=== PATIENT | female | born 1970 | race Caucasian/White ===

== ENCOUNTER → 2021-02-02 12:07 | Outpatient (BNVA) | payer OTHER, SELFPAY | PROVIDERS: Visit Provider Nurse Practitioner Family | DX: Z20.822 Contact with and (suspected) exposure to COVID-19 (principal); R19.7 Diarrhea, unspecified; R11.0 Nausea; J06.9 Acute upper respiratory infection, unspecified; R05 Cough | CPT/HCPCS: 80053; 85025; 87635 ==

== ENCOUNTER 2021-02-05 13:35 | Outpatient (CLI) | payer OTHER, SELFPAY ==
[2021-02-05 13:45] VITALS: BP 122/76; PULSE 86; RESP 20; TEMP 36.8; O2SAT 93; BMI 40.7
[2021-02-05 13:46] VITALS: BP 97/66; PULSE 74; RESP 20; O2SAT 90
--- NOTE | 2021-02-05 14:27 | PC.NURSE ---
Patient received MCA infusion. Vitals WNL Spo2 93. After infusion BP dropped 97/66 and Spo2 90. Put on 2 liters ad O2 staying 92/93. Patient sent to ER for further evaluation.
== END 2021-02-05 13:36 | disposition home or self-care (01) ==
PROVIDERS: Visit Provider Nurse Practitioner Family
DX: U07.1 COVID-19 (principal)
CPT/HCPCS: 96365

== ENCOUNTER 2021-02-05 14:26 | Emergency (ER) | payer OTHER, SELFPAY ==
[2021-02-05 14:29] VITALS: BP 137/75; PULSE 78; RESP 20; O2SAT 83; BMI 40.7
--- NOTE | 2021-02-05 14:35 | ED_ITS ---
HPI - Allergic Reaction General: Chief complaint: Allergic Reaction Stated complaint: DIFF W/INFUSION Time Seen by Provider: 02/05/21 14:35 History of Present Illness: HPI narrative: Ms. Mesa is a 50-year-old lady with no significant past medical history presents the emergency department from infusion clinic for concern over allergic reaction. Her symptom onset of typical COVID-19 symptoms was approximately 10 days ago and subacute. She had moderate intensity fevers, chills, aches, shortness of breath, cough, nausea, diarrhea, and generalized malaise. She tested positive for Covid on 02/02. She reports symptoms continuing without significant events and reported to infusion clinic today. She tolerated the infusion well and has not felt any different vital signs at the end of her infusion were obtained and her blood pressure was approximately 90 systolic and she was now requiring oxygen due to hypoxemia. She denies any changes that she is noticed including worsening shortness of breath, chest pain, cough, throat swelling, rash, or any other typical signs of allergic reaction. She denies similar episodes in the past. As such there is no intensity, provoking, exacerbating, alleviating factors. Review of Systems General: Reports: 10 or more systems reviewed and unremarkable except in HPI and below Physical Exam Narrative: EXAM NARRATIVE: GENERAL/CONSTITUTIONAL - well-appearing. No acute distress. Supplemental oxygen in place Eyes - PERRL, no conjunctival injection ENMT - Atraumatic external nose and ears. Moist mucous membranes. No pharyngeal edema or voice changes. NECK - supple. trachea midline CARDIOVASCULAR - regular rate and rhythm. Peripheral pulses 2+ and equal RESPIRATORY -mildly coarse to auscultation bilaterally. No wheezes. Good lung aeration. No retractions or accessory muscle use. ABDOMEN/GI - Nontender/Nondistended. No tenderness to percussion or evidence of peritonitis MSK - Extremities without obvious deformity or tenderness to palpation SKIN - Warm, Dry. No rashes including no hives. NEURO - alert and appropriately oriented. strength and sensation intact. Moves all extremities equally. PSYCH - Appropriate mood and affect Course ED course: - Patient was seen and evaluated by me at bedside - Patient placed on cardiac monitors, IV access obtained - Initial evaluation notable for no acute distress, nontoxic appearance. - Labs notable for no leukocytosis, normocytic anemia. No significant metabolic abnormality. Procalcitonin negative. - Imaging notable for findings consistent with known Covid - Patient clinical presentation would be atypical of allergic reaction however given the proximity to infusion and somewhat acute worsening cannot be excluded. Allergic reaction treatment ordered. - Additional considerations were discussed with the patient. In the absence of chest pain, tachypnea, or history of venous thromboembolism PE seems less likely however I did offer CTA to the patient which she declined. - Upon serial reexamination after treatment the patient was similar without worsening. She qualifies for 3 L home oxygen which was ordered. - Based on patient history, evaluation, labs, and imaging as interpreted the most likely cause of the patient's condition is unclear, may be an adverse infusion reaction however I suspect that this is just coincidental and due to COVID-19. - The results of ED evaluation were discussed with the patient including prescriptions and/or symptomatic cares (if applicable) including appropriate and responsible use, followup plan, and return precautions. The patient verbalized understanding and felt safe for discharge. - Patient discharged in satisfactory condition. Vital Signs: Vital signs: Vital Signs Temperature 98.2 F 02/05/21 14:42 Pulse Rate 78 02/05/21 14:42 Respiratory Rate 16 02/05/21 14:42 Blood Pressure 116/84 02/05/21 14:42 Pulse Oximetry 87 L 02/05/21 17:07 MDM - Allergic Reaction Medical Records: Attestation: I reviewed the patient's medical records. Lab Data: Attestation: I reviewed the patient's lab results. Labs: Lab Results 02/05/21 02/05/21 02/05/21 Range/Units 14:47 14:47 14:47 WBC 5.2 (4.0-10.0) 10^3/ uL RBC 4.16 (4.1-5.3) 10^6/u L Hgb 9.7 L (11.5-15.3) g/dL Hct 33.7 L (37.0-47.0) % MCV 81.0 (81-99) fl MCH 23.3 L (28.0-34.0) pg MCHC 28.8 L (30.0-36.0) g/dL RDW 16.8 H (12.1-15.1) % Plt Count 294 (130-400) 10^3/c mm MPV 9.7 (7.4-10.4) fL Neut % (Auto) 75.5 % Lymph % (Auto) 15.2 % Wilson % (Auto) 6.4 % Eos % (Auto) 0.0 % Baso % (Auto) 0.0 % Neut # (Auto) 3.92 (1.8-7.7) 10^3/u L Lymph # (Auto) 0.8 (0.8-4.8) 10^3/u L Wilson # (Auto) 0.3 (0.2-0.9) 10^3/u L Eos # (Auto) 0.0 (0.0-0.8) 10^3/u L Baso # (Auto) 0.0 (0.0-0.1) 10^3/u L Nucleated RBC % (a uto) 0 % Nucleated RBCs # 0.0 /100WBC Sodium 142 (136-145) mmol/L Potassium 4.0 (3.5-5.1) mmol/L Chloride 105 (98-107) mmol/L Carbon Dioxide 27 (22-29) mmol/L Anion Gap 14.0 (5-19) BUN 13 (6-20) mg/dL Creatinine 0.4 L (0.5-0.9) mg/dL GFR Calculation 168.3 H (90-130) mL/min Glucose 107 (65-115) mg/dL Calculated Osmolal ity 295 (285-295) mOsm/k g Calcium 8.5 (8.5-10.5) mg/dL Total Bilirubin 0.2 (0.15-1.2) mg/dL AST 33 H (0-32) U/L ALT 31 (0-33) U/L Alkaline Phosphata se 65 (35-105) IU/L Troponin T Baselin e 6 (0-10) ng/L Troponin T 120 Min [place] (0-10) ng/L Delta Troponin T (0-10) ABS# C-Reactive Protein 9.3 H (0.0-4.9) mg/L Total Protein 6.6 (6.6-8.7) g/dL Albumin 3.5 (3.5-5.2) g/dL Globulin 3.1 (1.3-4.6) g/dL Procalcitonin 0.07 (0-0.5) ng/mL 02/05/21 Range/Units 16:45 WBC (4.0-10.0) 10^3/ uL RBC (4.1-5.3) 10^6/u L Hgb (11.5-15.3) g/dL Hct (37.0-47.0) % MCV (81-99) fl MCH (28.0-34.0) pg MCHC (30.0-36.0) g/dL RDW (12.1-15.1) % Plt Count (130-400) 10^3/c mm MPV (7.4-10.4) fL Neut % (Auto) % Lymph % (Auto) % Wilson % (Auto) % Eos % (Auto) % Baso % (Auto) % Neut # (Auto) (1.8-7.7) 10^3/u L Lymph # (Auto) (0.8-4.8) 10^3/u L Wilson # (Auto) (0.2-0.9) 10^3/u L Eos # (Auto) (0.0-0.8) 10^3/u L Baso # (Auto) (0.0-0.1) 10^3/u L Nucleated RBC % (a uto) % Nucleated RBCs # /100WBC Sodium (136-145) mmol/L Potassium (3.5-5.1) mmol/L Chloride (98-107) mmol/L Carbon Dioxide (22-29) mmol/L Anion Gap (5-19) BUN (6-20) mg/dL Creatinine (0.5-0.9) mg/dL GFR Calculation (90-130) mL/min Glucose (65-115) mg/dL Calculated Osmolal ity (285-295) mOsm/k g Calcium (8.5-10.5) mg/dL Total Bilirubin (0.15-1.2) mg/dL AST (0-32) U/L ALT (0-33) U/L Alkaline Phosphata se (35-105) IU/L Troponin T Baselin e (0-10) ng/L Troponin T 120 Min [place] 6.00 (0-10) ng/L Delta Troponin T 0 (0-10) ABS# C-Reactive Protein (0.0-4.9) mg/L Total Protein (6.6-8.7) g/dL Albumin (3.5-5.2) g/dL Globulin (1.3-4.6) g/dL Procalcitonin (0-0.5) ng/mL EKG Data^: EKG 1: Attestation: I personally reviewed and interpreted this EKG as follows: EKG interpretation date: 02/05/21 EKG interpretation time: 14:42 Interpretation: Twelve-lead EKG shows a regular sinus rhythm at a rate of 76. SC interval 164, QRS duration 90, QTc 374. Left axis deviation. Interpretation: Sinus rhythm. Nonspecific ST segment abnormalities. Discharge Plan Discharge Patient Disposition: Home Clinical Impression: COVID-19, Hypoxemia Condition: Stable Prescriptions: New prednisone 50 mg tablet 50 mg PO DAILY 5 Days Qty: 5 RF: 0 No Action ondansetron HCl [Zofran] 4 mg tablet 4 mg PO Q8H PRN (Reason: nausea and vomiting) 10 Days Qty: 30 RF: 0 methylprednisolone [Medrol (Lance)] 4 mg tablets,dose pack See Rx Instructions PO PER PKG DIR Qty: 21 RF: 0 azithromycin [Zithromax Z-Lance] 250 mg tablet See Rx Instructions PO .COMPLEX Qty: 6 RF: 0 albuterol sulfate [ProAir HFA] 90 mcg/actuation HFA aerosol inhaler 2 puff inhalation Q6H PRN (Reason: shortness of breath or wheezing) Qty: 8.5 RF: 3 budesonide-formoterol [Symbicort] 160-4.5 mcg/actuation HFA aerosol inhaler 2 puff inhalation BID Qty: 10.2 RF: 0 benzonatate [Tessalon Perles] 100 mg capsule 100 mg PO TID PRN (Reason: cough) 30 Days Qty: 90 RF: 0 Tylenol Extra Strength 500 mg Tablet 1,000 mg PO Q4H PRN (Reason: Pain) RF: 0 Discharge Orders: Discharge ED (Routine); Ordered 02/05/21 Ordered By: Miguel A White Other Ambulatory Orders: DME: Oxygen (Order) Location: None Selected Ordered By: Miguel A White Discharge Diet: Usual diet Discharge Activity: Resume usual activity Patient Instructions: Severe Acute Respiratory Syndrome (SARS) (ED), Using Oxygen at Home (ED) Activity Restrictions/Additional Instructions: Thank you for visiting the emergency department. You were seen and evaluated for oxygen requirement after monoclonal antibody infusion. The exact cause of this is somewhat unclear though may be due to your known COVID-19. An allergic reaction seems less typical though you will be given a prescription for steroids. You may also use Benadryl or Pepcid [id number]. Please return the emergency department for worsening of your symptoms or anything else that you are concerned about and feel needs emergency department evaluation. Coding Level of Care Code ED [employer] for Raquel Barbour
--- NOTE | 2021-02-05 14:35 | XR_ITS ---
WS: [id number] XR chest 1V portable [id number] REASON FOR EXAM: hypoxemia, covid FINDINGS: Moderately tortuous thoracic aorta without aneurysmal dilatation. Prominent mediastinum width is felt to represent the mediastinal fat. Patchy infiltrative changes seen in both lower lungs and in the left mid and upper lung. Bony thorax is intact. XR/XR chest 1V portable [id number] IMPRESSION: Bilateral pulmonary infiltrates of unknown chronicity. Compatible with acute/avilez bacute pneumonitis.
--- NOTE | 2021-02-05 14:36 | ECG_ITS ---
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 Measurements Intervals [place] Rate: 76 P: 27 [place]: 164 QRS: -16 QRSD: 90 T: -7 QT: 344 QTc: 388 Interpretive Statements SINUS RHYTHM LOW QRS VOLTAGE IN PRECORDIAL LEADS [QRS DEFLECTION < 1.0 mV IN CHEST LEADS] POSSIBLE RIGHT VENTRICULAR CONDUCTION DELAY [RSR (QR) IN V1/V2] MODERATE VOLTAGE CRITERIA FOR LVH, CONSIDER NORMAL VARIANT [MEETS CRITERIA IN ONE OF: R(aVL), S(V1), R(V5), R(V5/V6)+S(V1)] POSSIBLE ANTERIOR MYOCARDIAL INFARCTION , PROBABLY OLD [30 ms Q WAVE IN V3/V4, OR R < 0.2 mV IN V4] No previous ECG available for comparison Electronically Signed On 02-05-2021 18:25:28 CDT by Anny Martin M.D. [id number]
[2021-02-05 14:42] VITALS: BP 116/84; PULSE 78; RESP 16; TEMP 36.8; O2SAT 97
[2021-02-05] MEDS: sodium chloride 0.9% 500 ML IV (14:55)
[2021-02-05 14:59] LABS: Hematocrit 33.7 % (37.0-47.0); Hemoglobin 9.7 g/dL (11.5-15.3); Lymphocytes # 0.8 10^3/uL (0.8-4.8); Lymphocytes % 15.2 %; Mean Corpuscular HGB Conc 28.8 g/dL (30.0-36.0); Mean Corpuscular Hemoglobin 23.3 pg (28.0-34.0); Mean Platelet Volume 9.7 fL (7.4-10.4); Monocytes # 0.3 10^3/uL (0.2-0.9); Monocytes % 6.4 %; Neutrophils # 3.92 10^3/uL (1.8-7.7); Neutrophils % 75.5 %; Nucleated Red Blood Cells % 0 %; Platelet Count 294 10^3/cmm (130-400); Red Blood Count 4.16 10^6/uL (4.1-5.3); Red Cell Distribution Width 16.8 % (12.1-15.1); White Blood Count 5.2 10^3/uL (4.0-10.0)
[2021-02-05 15:13] LABS: Troponin(5th) Baseline 6 ng/L (0-10)
[2021-02-05 15:14] LABS: Alanine Aminotransferase 31 U/L (0-33); Albumin Level 3.5 g/dL (3.5-5.2); Alkaline Phosphatase 65 IU/L (35-105); Aspartate Amino Transferase 33 U/L (0-32); Blood Urea Nitrogen 13 mg/dL (6-20); C Reactive Protein 9.3 mg/L (0.0-4.9); Calcium 8.5 mg/dL (8.5-10.5); Carbon Dioxide 27 mmol/L (22-29); Chloride 105 mmol/L (98-107); Globulin 3.1 g/dL (1.3-4.6); Glomerular Filtration Rate 168.3 mL/min (90-130); Glucose 107 mg/dL (65-115); Osmolality Calculated 295 mOsm/kg (285-295); Sodium 142 mmol/L (136-145); Total Bilirubin 0.2 mg/dL (0.15-1.2); Total Protein 6.6 g/dL (6.6-8.7)
[2021-02-05 15:21] LABS: Procalcitonin 0.07 ng/mL (0-0.5)
[2021-02-05] MEDS: famotidine 20 mg/2 mL INJ 40 MG IVP (16:04)
[2021-02-05] MEDS: diphenhydrAMINE 50 mg/mL SDV 1mL 25 MG IVP (16:04)
--- NOTE | 2021-02-05 16:36 | ECG_ITS ---
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 Measurements Intervals [place] Rate: 73 P: 30 [place]: 169 QRS: -15 QRSD: 89 T: -6 QT: 343 QTc: 378 Interpretive Statements SINUS RHYTHM LOW QRS VOLTAGE IN PRECORDIAL LEADS [QRS DEFLECTION < 1.0 mV IN CHEST LEADS] POSSIBLE RIGHT VENTRICULAR CONDUCTION DELAY [RSR (QR) IN V1/V2] MINIMAL VOLTAGE CRITERIA FOR LVH, CONSIDER NORMAL VARIANT [MEETS CRITERIA IN ONE OF: R(aVL), S(V1), R(V5), R(V5/V6)+S(V1)] POSSIBLE ANTERIOR MYOCARDIAL INFARCTION , PROBABLY OLD [30 ms Q WAVE IN V3/V4, OR R < 0.2 mV IN V4] Compared to ECG 02/05/2021 14:41:24 No significant changes Electronically Signed On 02-05-2021 19:01:09 CDT by Anny Martin M.D. [id number]
[2021-02-05 17:07] VITALS: O2SAT 87; O2SAT 95
[2021-02-05 17:13] LABS: Troponin 5 2HR Delta 0 ABS# (0-10)
== END 2021-02-05 18:17 | disposition home or self-care (01) ==
PROVIDERS: Emergency Provider Emergency Medicine
DX: U07.1 COVID-19 (principal); R09.02 Hypoxemia
CPT/HCPCS: 36415; 71045; 80053; 84145; 84484; 85025; 86140; 93005; 96361; 96374; 96375; 99284; J1200; J2930; J3490; J7040